=== PATIENT | male | born 1985 | race Caucasian/White ===

== ENCOUNTER 2017-04-03 14:09 | Emergency (ER) | payer MEDICAID ==
[2017-04-03 14:19] VITALS: BP 113/83; RESP 16; TEMP 98.2; O2SAT 95
--- NOTE | 2017-04-03 14:43 | EDPHY ---
H & P Time Seen by Provider: 04/03/17 14:34 HPI/ROS: This patient has sinus pain in the left frontal region and left ear pressure associated with nasal congestion for 2 weeks. He reports moderate discomfort associated with this with partial relief from ibuprofen 11:00 a.m.. The discomfort in his sinus worsens when she bends forward. No other exacerbating factors. He has had similar symptoms in the past with sinusitis. He does have a left deviated septum. ROS: No high fevers or chills. No other constitutional symptoms Neuro: No confusion. No neck stiffness. No focal symptoms. Pulmonary: No cough Cardiovascular: No lightheadedness GI: No nausea vomiting 7 point ROS is otherwise negative. Past Medical/Surgical History: Had a negative rapid strep 2 weeks ago at an urgent care clinic this onset of his URI symptoms. Deviated septum toward the left Smoking Status: Never smoked Physical Exam: Physical Exam Vital signs are normal. General: No acute distress HEENT: Nose yellow to green discharge bilaterally with deviated septum on the left side and swollen nasal turbinates. He has sinus tenderness to percussion left frontal sinus Ears: External canals and tympanic membranes are clear with no erythema or abnormal findings bilaterally except for a clear effusion on the left. Oropharynx: No erythema or exudates. No dysphonia. No drooling or stridor. Eyes: Pupils equal and react to light. Extraocular motions are intact. Neck: Supple with no meningismus. No lymphadenopathy Lungs: Clear to auscultation bilaterally with no rales, rhonchi or wheeze. No respiratory distress. Cardiac: Regular rate and rhythm with no murmur gallop or rub Skin: No rash or pallor. Neuro: Alert with no focal deficits noted. Initial differential diagnosis: Rhinosinusitis, bacterial sinusitis, serous otitis Constitutional: Initial Vital Signs Temperature (C) 36.8 C 04/03/17 14:12 Heart Rate 114 H 04/03/17 14:12 Respiratory Rate 16 04/03/17 14:12 Blood Pressure 113/83 H 04/03/17 14:12 O2 Sat (%) 95 04/03/17 14:12 O2 Delivery Mode Room Air Allergies/Adverse Reactions: No Known Allergies Allergy (Verified 04/03/17 14:12) Home Medications: Medication Instructions Recorded Prozac 20 MG (*) 11/12/16 Azithromycin [Zithromax] 250 mg PO DAILY #6 tab 04/03/17 Fluticasone Nasal [Flonase Nasal 2 sprays NASAL DAILY #1 mdi 04/03/17 [place] (RX)] MDM/Departure - Depart Disposition: Home, Routine, Self-Care Clinical Impression: Acute sinusitis Qualifiers: Sinusitis location: frontal Recurrence: non-recurrent Qualified Code(s): J01.10 - Acute frontal sinusitis, unspecified Serous otitis media Qualifiers: Laterality: left Chronicity: acute Recurrence: not specified as recurrent Qualified Code(s): H65.02 - Acute serous otitis media, left ear Condition: Good Instructions: Sinusitis (ED), Serous Otitis Media (ED) Additional Instructions: Diagnoses: 1. Frontal sinusitis 2. Serous otitis Plan: Humidifier Flonase steroid nasal spray Zithromax antibiotic Ibuprofen Tylenol for discomfort as needed Return for any significant worsening despite the treatment plan Follow up with primary care physician if you're not improving over the next 5- 10 days the treatment plan Prescriptions: Azithromycin [Zithromax] 250 mg PO DAILY #6 tab Fluticasone Nasal [Flonase Nasal [place] (RX)] 2 sprays NASAL DAILY #1 mdi Referrals: NONE *PRIMARY CARE P,. [Primary Care Provider] - As per Instructions
[2017-04-03 15:15] VITALS: PULSE 106
== END 2017-04-03 15:00 | disposition home or self-care (01) ==
LOC: CED 14:09
DX: J01.10 Acute frontal sinusitis, unspecified (principal); H65.02 Acute serous otitis media, left ear

== ENCOUNTER 2017-08-02 21:16 | Emergency (ER) | payer MEDICAID ==
[2017-08-02 21:32] VITALS: RESP 18
--- NOTE | 2017-08-02 21:44 | EDPHY ---
H & P Stated Complaint: painful urination, left flank pain Time Seen by Provider: 08/02/17 21:37 HPI/ROS: CHIEF COMPLAINT: Left flank pain HISTORY OF PRESENT ILLNESS: The patient is a 32-year-old man who comes to the emergency department complaining mild left flank/CVA pain that began this morning. It has been rather constant. No dysuria or hematuria. He states that he was lifting a heavy chair yesterday any wondered if he may have strained a muscle. He does not have any history of abnormalities. 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 He denies having any abdominal pain. He has felt slightly nauseous but has not vomited. No fever. He has had normal bowel movements and gas today. No diarrhea. No bloody stool. No trauma. REVIEW OF SYSTEMS: Constitutional: denies: chills, fever, recent illness, recent injury EENTM: denies: blurred vision, double vision, nose congestion Respiratory: denies: cough, shortness of breath Cardiac: denies: chest pain, irregular heart rate, lightheadedness, palpitations Gastrointestinal/Abdominal: denies: abdominal pain, diarrhea, nausea, vomiting, blood streaked stools Genitourinary: denies: dysuria, frequency, hematuria, pain Musculoskeletal: See HPI Skin: denies: lesions, rash, jaundice, bruising Neurological: denies: headache, numbness, paresthesia, tingling, dizziness, weakness Hematologic/Lymphatic: denies: blood clots, easy bleeding, easy bruising Immunologic/allergic: denies: HIV/AIDS, transplant EXAM: GENERAL: Well-appearing, well-nourished and in no acute distress. HEAD: Atraumatic, normocephalic. EYES: Pupils equal round and reactive to light, extraocular movements intact, sclera anicteric, conjunctiva are normal. ENT: TMs normal, nares patent, oropharynx clear without exudates. Moist mucous membranes. NECK: Normal range of motion, supple without lymphadenopathy or JVD. LUNGS: Breath sounds clear to auscultation bilaterally and equal. No wheezes rales or rhonchi. HEART: Regular rate and rhythm without murmurs, rubs or gallops. ABDOMEN: Soft, nontender, normoactive bowel sounds. No guarding, no rebound. No masses appreciated. BACK: Left CVA pain but no CVA tenderness, no spinal tenderness, step-offs or deformities EXTREMITIES: Normal range of motion, no pitting or edema. No clubbing or cyanosis. NEUROLOGICAL: Cranial nerves II through XII grossly intact. Normal speech, normal gait. 5/5 strength, normal movement in all extremities, normal sensation PSYCH: Normal mood, normal affect. SKIN: Warm, dry, normal turgor, no visible rashes or lesions. Source: Patient Exam Limitations: No limitations - Personal History Current Tetanus/Diphtheria Vaccine: Yes Current Tetanus Diphtheria and Acellular Pertussis (TDAP): Yes - Medical/Surgical History Hx Asthma: No Hx Chronic Respiratory Disease: No Hx Diabetes: No Hx Cardiac Disease: No Hx Renal Disease: No Hx Cirrhosis: No Hx Alcoholism: No Hx HIV/AIDS: No Hx Splenectomy or Spleen Trauma: No Other PMH: MEd hx-benign tumor small intestine,bowel obstruction. SUrg-as above - Family History Significant Family History: No pertinent family hx - Social History Smoking Status: Never smoked Alcohol Use: Sober Drug Use: None Constitutional: Initial Vital Signs Temperature (C) 36.5 C 08/02/17 21:29 Heart Rate 86 08/02/17 21:29 Respiratory Rate 18 08/02/17 21:29 Blood Pressure 130/75 H 08/02/17 21:29 O2 Sat (%) 94 08/02/17 21:29 O2 Delivery Mode Room Air Allergies/Adverse Reactions: No Known Allergies Allergy (Verified 08/02/17 21:27) Home Medications: Medication Instructions Recorded Ketorolac Tromethamine [Toradol] 10 mg PO Q6H #16 tab 08/02/17 Ondansetron Odt [Zofran Odt 4 mg 4 mg PO Q4 PRN #20 tab 08/02/17 (RX)] Tamsulosin HCl [Flomax] 0.4 mg PO DAILY #10 cap 08/02/17 Medical Decision Making - Diagnostics Imaging: Discussed imaging studies w/ call manager Radiologist ED Course/Re-evaluation: Discussed the CT results. The patient's pain is currently controlled. I will treat him with Toradol and Flomax and held follow up with Urology. I encouraged him strain his urine. He feels ready to go home. Differential Diagnosis: Partial list of the Differential diagnosis considered include but were not limited to; muscle strain, kidney stone, urinary tract infection and although unlikely based on the history and physical exam, I also considered abscess, hernia, muscle strain, dissection, obstruction. I discussed these differential diagnoses and the plan with the patient as well as the usual and expected course. The patient understands that the diagnosis is provisional and that in medicine we are not always correct and that further workup is often warranted. Usual and customary warnings were given. All of the patient's questions were answered. The patient was instructed to return to the emergency department should the symptoms at all worsen or return, otherwise to followup with the physician as we discussed. - Data Points Laboratory Results: Laboratory Results 08/02/17 22:10 08/02/17 22:10 08/02/17 08/02/17 08/02/17 22:10 22:10 21:43 WBC 8.22 10^3/uL 10^3/uL (3.80-9.50) RBC 5.15 10^6/uL 10^6/uL (4.40-6.38) Hgb 15.3 g/dL g/dL (13.7-17.5) Hct 46.2 % % (40.0-51.0) MCV 89.7 fL fL (81.5-99.8) MCH 29.7 pg pg (27.9-34.1) MCHC 33.1 g/dL g/dL (32.4-36.7) RDW 12.3 % % (11.5-15.2) Plt Count 196 10^3/uL 10^3/uL (150-400) MPV 10.0 fL fL (8.7-11.7) Neut % (Auto) 77.2 % H % (39.3-74.2) Lymph % (Auto) 16.2 % % (15.0-45.0) [place] % (Auto) 5.8 % % (4.5-13.0) Eos % (Auto) 0.4 % L % (0.6-7.6) Baso % (Auto) 0.2 % L % (0.3-1.7) Nucleat RBC Rel Count 0.0 % % (0.0-0.2) Absolute Neuts (auto) 6.34 10^3/uL 10^3/uL (1.70-6.50) Absolute Lymphs (auto) 1.33 10^3/uL 10^3/uL (1.00-3.00) Absolute Monos (auto) 0.48 10^3/uL 10^3/uL (0.30-0.80) Absolute Eos (auto) 0.03 10^3/uL 10^3/uL (0.03-0.40) Absolute Basos (auto) 0.02 10^3/uL 10^3/uL (0.02-0.10) Absolute Nucleated RBC 0.00 10^3/uL 10^3/uL (0-0.01) Immature Gran % 0.2 % % (0.0-1.1) Immature Gran # 0.02 10^3/uL 10^3/uL (0.00-0.10) Sodium 141 mEq/L mEq/L (134-144) Potassium 4.3 mEq/L mEq/L (3.5-5.2) Chloride 105 mEq/L mEq/L (97-110) Carbon Dioxide 25 mEq/l mEq/l (22-31) Anion Gap 11 mEq/L mEq/L (8-16) BUN 13 mg/dL mg/dL (7-23) Creatinine 1.0 mg/dL mg/dL (0.7-1.3) Estimated GFR > 60 Glucose 100 mg/dL mg/dL (70-100) Calcium 9.4 mg/dL mg/dL (8.5-10.4) Total Bilirubin 0.8 mg/dL mg/dL (0.1-1.4) Conjugated Bilirubin 0.5 mg/dL mg/dL (0.0-0.5) Unconjugated Bilirubin 0.3 mg/dL mg/dL (0.0-1.1) AST 38 IU/L IU/L (17-59) ALT 49 IU/L IU/L (21-72) Alkaline Phosphatase 81 IU/L IU/L (38-126) Total Protein 8.4 g/dL H g/dL (6.3-8.2) Albumin 4.3 g/dL g/dL (3.5-5.0) Lipase 71 IU/L IU/L (23-300) Urine Color YELLOW Urine Appearance HAZY Urine pH 6.0 (5.0-7.5) Ur Specific [place] 1.020 (1.002-1.030) Urine Protein 1+ H (NEGATIVE) Urine Ketones TRACE H (NEGATIVE) Urine Blood 3+ H (NEGATIVE) Urine Nitrate NEGATIVE (NEGATIVE) Urine Bilirubin NEGATIVE (NEGATIVE) Urine Urobilinogen 0.2 EU EU (0.2-1.0) Ur Leukocyte Esterase NEGATIVE (NEGATIVE) Urine RBC 25-50 /hpf H /hpf (0-3) Urine WBC OCCASIONAL /hpf /hpf (0-3) Ur Epithelial Cells 1+ /lpf /lpf (NONE-1+) Urine Mucus 2+ /lpf H /lpf (NONE-1+) Urine Glucose NEGATIVE (NEGATIVE) Medications Given: Discontinued Medications Hydromorphone HCl (Dilaudid) 1 mg IVP EDNOW ONE Stop: 08/02/17 22:12 Last Admin: 08/02/17 22:57 Dose: 1 mg Sodium Chloride (Ns) 1,000 mls @ 0 mls/hr IV EDNOW ONE; Wide Open PRN Reason: Protocol Stop: 08/02/17 22:12 Last Admin: 08/02/17 22:55 Dose: 1,000 mls Ondansetron HCl (Zofran) 4 mg IVP EDNOW ONE Stop: 08/02/17 22:24 Last Admin: 08/02/17 22:57 Dose: 4 mg Departure - Departure Disposition: Home, Routine, Self-Care Clinical Impression: Calculus of left kidney Condition: Fair Instructions: Kidney Stones (ED) Referrals: VALERIA BERRY [Primary Care Provider] - As per Instructions Sean Dugan MD [Medical Doctor] - As per Instructions Prescriptions: Ketorolac Tromethamine [Toradol] 10 mg PO Q6H #16 tab Ondansetron Odt [Zofran Odt 4 mg (RX)] 4 mg PO Q4 PRN #20 tab PRN Reason: Nausea & Vomiting Tamsulosin HCl [Flomax] 0.4 mg PO DAILY #10 cap
[2017-08-02 21:55] LABS: COLOR YELLOW; LEUKOCYTE ESTERASE,URINE NEGATIVE (NEGATIVE); NITRITE,URINE NEGATIVE (NEGATIVE)
[2017-08-02 22:09] LABS: MUCUS 2+ /lpf (NONE-1+); RBC,URINE 25-50 /hpf (0-3); WBC,URINE OCCASIONAL /hpf (0-3)
[2017-08-02] MEDS ORDERED: NS 1,000 ML IV ONE (22:11)
[2017-08-02] MEDS ORDERED: HYDROmorphONE/DILAUDID 1 MG/ML INJ IVP ONE (22:11)
[2017-08-02 22:23] LABS: % IMMATURE GRANULYOCYTES 0.2 % (0.0-1.1); ABSOLUTE IMMATURE GRANULOCYTES 0.02 10^3/uL (0.00-0.10); ADD DIFF? NO; ADD MORPH? NO; ADD SCAN? NO; ATYPICAL LYMPHOCYTE FLAG 20 (0-99); FRAGMENT RBC FLAG 0 (0-99); HEMATOCRIT 46.2 % (40.0-51.0); HEMOGLOBIN 15.3 g/dL (13.7-17.5); LEFT SHIFT FLG 0 (0-99); LIPEMIA HEMOLYSIS FLAG 80 (0-99); MEAN CELL HEMOGLOBIN 29.7 pg (27.9-34.1); MEAN CELL HEMOGLOBIN CONCENTR. 33.1 g/dL (32.4-36.7); MEAN CELL VOLUME 89.7 fL (81.5-99.8); PLATELET CLUMPS FLAG 0 (0-99); PLATELET COUNT 196 10^3/uL (150-400); RED BLOOD CELL COUNT 5.15 10^6/uL (4.40-6.38); RED CELL DISTRIBUTION WIDTH 12.3 % (11.5-15.2)
[2017-08-02] MEDS ORDERED: ONDANSETRON 4 MG/2 ML VIAL IVP ONE (22:23)
[2017-08-02 22:37] LABS: ALANINE AMINOTRANSFERASE 49 IU/L (21-72); ALBUMIN 4.3 g/dL (3.5-5.0); ALKALINE PHOSPHATASE 81 IU/L (38-126); ANION GAP 11 mEq/L (8-16); ASPARTATE AMINOTRANSFERASE 38 IU/L (17-59); BILIRUBIN,TOTAL 0.8 mg/dL (0.1-1.4); BILIRUBIN-CONJUGATED 0.5 mg/dL (0.0-0.5); BILIRUBIN-UNCONJUGATED 0.3 mg/dL (0.0-1.1); CALCIUM 9.4 mg/dL (8.5-10.4); CARBON DIOXIDE 25 mEq/l (22-31); CHLORIDE 105 mEq/L (97-110); GLOMERULAR FILTRATION RATE > 60; GLUCOSE 100 mg/dL (70-100); POTASSIUM 4.3 mEq/L (3.5-5.2); SODIUM 141 mEq/L (134-144); TOTAL PROTEIN 8.4 g/dL (6.3-8.2)
[2017-08-02] MEDS ORDERED: KETOROLAC 30 MG/1 ML SDV IVP ONE (23:02)
[2017-08-02] MEDS ORDERED: TAMSULOSIN HCL 0.4 MG CAP PO ONE (23:02)
[2017-08-02 23:48] VITALS: BP 128/82; PULSE 94; TEMP 98.4; O2SAT 95
== END 2017-08-02 23:47 | disposition home or self-care (01) ==
LOC: CED 21:16
DX: N20.0 Calculus of kidney (principal); E86.9 Volume depletion, unspecified
CPT/HCPCS: 74176-PO; 80048-PO; 80076-PO; 81003-PO; 81015-PO; 83690-PO; 85025-PO; 96374; J1170; J1885; J2405